=== PATIENT | female | born 1955 | race Caucasian/White ===

== ENCOUNTER → 2018-12-21 18:24 | Outpatient (CLI) | payer MEDICAID, SELFPAY | PROVIDERS: Visit Provider Podiatrist | DX: B35.1 Tinea unguium (principal) | CPT/HCPCS: 87102; 87206; 87220 ==

== ENCOUNTER → 2021-01-20 12:56 | Outpatient (CLI) | payer MEDICAID, SELFPAY ==
[2021-01-20 13:11] LABS: Basophils # 0.1 K/mm3 (0-0.2); Basophils % 0.9 % (0.1-2.0); Eosinophils # 0.1 K/mm3 (0.0-0.4); Eosinophils % 1.4 % (0.1-12.0); Hematocrit 44.3 % (37.0-47.0); Hemoglobin 14.2 g/dL (12.2-16.2); Lymphocytes # 2.3 K/mm3 (0.7-4.5); Lymphocytes % 35.4 % (10-50); Mean Corpuscular HGB Conc 32.1 g/dL (31.8-35.4); Mean Corpuscular Hemoglobin 30.1 pg (27.0-31.2); Mean Corpuscular Volume 93.7 fl (81-99); Mean Platelet Volume 7.7 fl (7.4-10.4); Monocytes # 0.4 K/mm3 (0.1-1.0); Monocytes % 6.6 % (1.7-9.3); Neutrophils # 3.6 K/mm3 (1.8-7.8); Neutrophils % 55.6 % (37.0-80.0); Platelet Count 233 K/mm3 (142-424); Red Blood Count 4.73 M/mm3 (4.20-5.40); Red Cell Distribution Width 14.4 % (11.5-17.5); White Blood Count 6.6 K/mm3 (4.8-10.8)
[2021-01-20 16:48] LABS: Anion Gap 8.9 mEq/L (5-15); Blood Urea Nitrogen 13 mg/dl (7-17); Calcium 9.2 mg/dl (8.4-10.2); Carbon Dioxide 30 mmol/L (22.0-30.0); Chloride 104 mmol/L (98-107); Estimated Glomerular Filt Rate 45 ml/min (>60); GFR (African American) 55 ML/MIN (>60); Glucose 105 mg/dl (74-100); Potassium 3.9 mmoL/L (3.5-5.1); Sodium 139 mmol/L (136-145)
== END ==
PROVIDERS: Visit Provider Surgery
DX: K57.92 Diverticulitis of intestine, part unspecified, without perforation or abscess without bleeding (principal)
CPT/HCPCS: 36415; 80048; 85025

== ENCOUNTER 2021-01-27 17:24 | Emergency (ER) | payer MEDICAID, SELFPAY ==
--- NOTE | 2021-01-27 17:27 | HMH.EDGENADL ---
ED Disposition Clinical Impression: Benign paroxysmal positional vertigo Qualifiers: Laterality: bilateral Qualified Code(s): H81.13 - Benign paroxysmal vertigo, bilateral Disposition: Home, Self-Care Condition on Discharge: Good Instructions: Vertigo Referrals: Johanna Sam APRN [Primary Care Provider] - 3 days Time of Disposition: 19:33 - Critical Care Critical Care Time: No Attestation: On , the high probability of a clinically significant, sudden or life threatening deterioration of the following system(s) required my full and direct attention, intervention and personal management. The time I documented below is in addition to time spent performing reported procedures but includes the following listed in this critical care notation. Medical Decision Making - Medical Records Medical records reviewed: Yes: I reviewed the patient's medical records. - Clay Inquiry Pt receiving controlled substance: No Vital Signs: 01/27/21 17:35 Temperature 98.6 F Temperature Source Oral Pulse Rate [Right Radial] 104 H Respiratory Rate 18 Blood Pressure [Right Arm] 179/102 H Blood Pressure Mean [Right Arm] 127 Blood Pressure Source [Right Arm] Automatic Cuff Blood Pressure Position [Right Arm] Sitting 02 Sat by Pulse Oximetry 98 Oxygen Delivery Method Room Air - Lab Data Lab results reviewed: Yes: I reviewed the patient's lab results. Lab Results 01/27/21 17:54: WBC 11.4 H, RBC 4.92, Hgb 14.8, Hct 45.2, MCV 91.8, MCH 30.1, MCHC 32.7, RDW 14.7, Plt Count 262, MPV 7.7, Neut % (Auto) 68.0, Lymph % (Auto) 23.3, [place] % (Auto) 6.8, Eos % (Auto) 1.3, Baso % (Auto) 0.7, Neut # (Auto) 7.7, Lymph # (Auto) 2.7, [place] # (Auto) 0.8, Eos # (Auto) 0.1, Baso # (Auto) 0.1 01/27/21 17:54: Sodium 140, Potassium 3.4 L, Chloride 102, Carbon Dioxide 31 H, Anion Gap 10.4, BUN 18 H, Creatinine 1.10 H, Estimated Creat Clear 90, Estimated GFR 50 L, Est GFR ( Amer) 61, Glucose 102 H, Calcium 9.5, Troponin I < 0.01 Result diagrams: 01/27/21 17:54 01/27/21 17:54 Orders (Tests/Meds): ED MEDICATIONS Discontinued Medications Generic Name Dose Route Start Last Admin Trade Name Richi PRAlfredo Reason Stop Dose Admin Meclizine HCl 50 mg 01/27/21 18:43 01/27/21 18:52 Meclizine 25mg Tablet PO 01/27/21 18:44 50 mg ONCE ONE Administration - ECG Data Tracing #1 9 7 beats current, normal sinus rhythm, right bundle branch block, no ST elevation or depression. ECG initial impression date: 01/27/21 ECG initial impression time: 17:40 Medical Decision Narrative: 65yo F evaluated for dizziness over a month. Patient in no acute distress on initial evaluation. Patient's exam is benign. Patient's EKG is reviewed as above. Patient has a white count of 11.5. Differential diagnosis includes was not limited to: BPPV, labyrinthitis, acoustic neuroma or schwannoma. Patient is treated with meclizine while waiting for labs to result. Patient is appropriate and stable this time. Symptoms seem to be improved with movement. Lab work is unremarkable. General Adult HPI - General Stated complaint: Dizzy for a month refer by primary DR Time Seen by Provider: 01/27/21 17:27 Mode of Arrival: Ambulatory - History of Present Illness HPI narrative: 65yo F with past medical history of severe mitral valve disease status post mechanical valve is directed to the emergency department by her PCP for 1 month of dizziness. Patient reports her dizziness is not constant and is related to her position. She denies any headache, visual change. She denies nausea/vomiting. She denies any fall. She reports taking all medications as directed. Patient reports she has been diagnosed with a UTI recently and is currently taking antibiotics for it. Patient reports being told by her PCP that she had fluid behind her ears. - Related Data Home Medications Medication Instructions Recorded Confirmed carvedilol 25 mg tablet 25 mg PO BID 30 Days #
--- NOTE | 2021-01-27 17:30 | ECG_ITS ---
APPROVED REPORT Exam: Resting ECG HR:97 bpm ECG Measurements Heart Rate 97 AXES IL 190 P 48 QRSd 132 QRS 114 QT 402 T 24 QTc 510 Conclusion Normal sinus rhythm Right bundle branch block Abnormal ECG Electronically signed by : Ambrose Traylor, 01/29/2021 13:57:20
[2021-01-27 17:35] VITALS: BP 179/102; PULSE 104; RESP 18; TEMP 37; O2SAT 98; BMI 39.9
[2021-01-27 18:13] LABS: Basophils # 0.1 K/mm3 (0-0.2); Basophils % 0.7 % (0.1-2.0); Eosinophils # 0.1 K/mm3 (0.0-0.4); Eosinophils % 1.3 % (0.1-12.0); Hematocrit 45.2 % (37.0-47.0); Hemoglobin 14.8 g/dL (12.2-16.2); Lymphocytes # 2.7 K/mm3 (0.7-4.5); Lymphocytes % 23.3 % (10-50); Mean Corpuscular HGB Conc 32.7 g/dL (31.8-35.4); Mean Corpuscular Hemoglobin 30.1 pg (27.0-31.2); Mean Corpuscular Volume 91.8 fl (81-99); Mean Platelet Volume 7.7 fl (7.4-10.4); Monocytes # 0.8 K/mm3 (0.1-1.0); Monocytes % 6.8 % (1.7-9.3); Neutrophils # 7.7 K/mm3 (1.8-7.8); Platelet Count 262 K/mm3 (142-424); Red Blood Count 4.92 M/mm3 (4.20-5.40); Red Cell Distribution Width 14.7 % (11.5-17.5); White Blood Count 11.4 K/mm3 (4.8-10.8)
[2021-01-27 18:23] LABS: Chloride 102 mmol/L (98-107); Sodium 140 mmol/L (136-145)
[2021-01-27 18:24] LABS: Potassium 3.4 mmoL/L (3.5-5.1)
[2021-01-27 18:26] LABS: Blood Urea Nitrogen 18 mg/dl (7-17); Creatinine Clearance Estimated 90 mL/min (50-200); Estimated Glomerular Filt Rate 50 ml/min (>60); GFR (African American) 61 ML/MIN (>60)
[2021-01-27 18:27] LABS: Anion Gap 10.4 mEq/L (5-15); Calcium 9.5 mg/dl (8.4-10.2); Carbon Dioxide 31 mmol/L (22.0-30.0); Glucose 102 mg/dl (74-100)
[2021-01-27 18:48] LABS: Troponin I < 0.01 ng/ml (0.00-0.034)
[2021-01-27 19:36] VITALS: BP 112/74; PULSE 73; RESP 18; TEMP 36.7; O2SAT 98
== END 2021-01-27 19:37 | disposition home or self-care (01) ==
PROVIDERS: Emergency Provider Family Medicine; PCP Nurse Practitioner Family
DX: H81.13 Benign paroxysmal vertigo, bilateral (principal); Z95.2 Presence of prosthetic heart valve; F41.8 Other specified anxiety disorders; N39.0 Urinary tract infection, site not specified; K21.9 Gastro-esophageal reflux disease without esophagitis; I10 Essential (primary) hypertension; E78.5 Hyperlipidemia, unspecified; Z79.899 Other long term (current) drug therapy
CPT/HCPCS: 80048; 84484; 85025; 93005; 99282

== ENCOUNTER → 2021-07-03 09:39 | Outpatient (CLI) | payer MEDICAID, SELFPAY ==
[2021-07-03 10:28] LABS: Prothrombin Time 29.6 seconds (10.1-12.5)
[2021-07-03 10:49] LABS: Blood Urea Nitrogen 14 mg/dl (7-17); Estimated Glomerular Filt Rate 85 ml/min (>60); GFR (African American) 102 ML/MIN (>60)
== END ==
PROVIDERS: Nurse Practitioner Family; Surgery; Visit Provider Orthopaedic Surgery
DX: Z51.81 Encounter for therapeutic drug level monitoring (principal); Z79.01 Long term (current) use of anticoagulants; Z95.2 Presence of prosthetic heart valve
CPT/HCPCS: 36415; 82565; 84520; 85610

== ENCOUNTER → 2021-07-07 08:36 | Outpatient (CLI) | payer MEDICAID, SELFPAY ==
--- NOTE | 2021-07-07 08:42 | CT_ITS ---
PROCEDURE: CT ABDOMEN PELVIS W CON CLINICAL INDICATION: divertulitis COMPARISON: No exams were available for comparison TECHNIQUE: IV Contrast: 75ML Isovue 370 Oral Contrast 450ml Redicat Axial images obtained with sagittal and coronal reformats. All CT scans at the facility use one or more dose reduction, viz: automated exposure control, ma/kV adjustment per patient size (including targeted exams where dose is matched to indication, i.e. head), or iterative reconstruction technique. FINDINGS: LOWER THORAX: There is a 6 mm noncalcified nodule in the left lower lobe. There has been a prior mitral valve replacement. Epicardial pacer wires are present. ABDOMEN & PELVIS: Mild fatty liver. The spleen, pancreas, and right adrenal gland have an unremarkable appearance. Mildly enlarged left adrenal gland nonspecific maintaining an adrenal form shape. Duodenal diverticulum is noted. There has been a prior cholecystectomy. There is scarring of the right kidney. No renal or ureteral calculi. No hydronephrosis. No intestinal obstruction or free air. No evidence of appendicitis. There is colonic diverticulosis. No evidence of diverticulitis. Small umbilical hernia containing fat. There is a small lower ventral abdominal wall hernia just above the symphysis pubis region containing fat. There has been a prior hysterectomy. No pelvic mass or abnormal fluid collection. Degenerative disc disease L5-S1. IMPRESSION: No acute finding. Colonic diverticulosis without evidence of diverticulitis. Indeterminate 6 mm nodule left lower lobe. Six-month CT chest without contrast suggested for follow-up. Dictated by: Jim Motley MD 07/08/2021 08:58 Jim Motley MD in [place] 07/08/2021 08:58
== END ==
PROVIDERS: PCP Nurse Practitioner Family; Visit Provider Surgery
DX: K57.92 Diverticulitis of intestine, part unspecified, without perforation or abscess without bleeding (principal)
CPT/HCPCS: 74177; Q9967

== ENCOUNTER → 2022-02-19 13:46 | Outpatient (CLI) | payer MEDICAID, SELFPAY ==
[2022-02-19 14:31] LABS: INR 2.66 (0.9-1.1)
== END ==
PROVIDERS: Visit Provider Nurse Practitioner Family
DX: Z51.81 Encounter for therapeutic drug level monitoring (principal); Z79.01 Long term (current) use of anticoagulants; Z95.2 Presence of prosthetic heart valve
CPT/HCPCS: 36415; 85610

== ENCOUNTER → 2022-02-22 10:29 | Outpatient (CLI) | payer MEDICAID, SELFPAY ==
[2022-02-22 10:35] LABS: MANUAL DIFFERENTIAL MANUAL DIFFERENTIAL (MANUAL DIFF)
[2022-02-22 11:13] LABS: INR 3.39 (0.9-1.1)
[2022-02-22 11:23] LABS: Basophils # 0.2 K/mm3 (0-0.2); Basophils % 1.8 % (0.1-2.0); Eosinophils # 0.1 K/mm3 (0.0-0.4); Hematocrit 45.1 % (37.0-47.0); Hemoglobin 14.5 g/dL (12.2-16.2); Lymphocytes # 1.9 K/mm3 (0.7-4.5); Lymphocytes % 23.4 % (10-50); Mean Corpuscular HGB Conc 32.2 g/dL (31.8-35.4); Mean Corpuscular Hemoglobin 31.3 pg (27.0-31.2); Mean Corpuscular Volume 97.2 fl (81-99); Monocytes # 0.6 K/mm3 (0.1-1.0); Neutrophils # 5.4 K/mm3 (1.8-7.8); Neutrophils % 66.8 % (37.0-80.0); Platelet Count 277 K/mm3 (142-424); Red Blood Count 4.64 M/mm3 (4.20-5.40); Red Cell Distribution Width 14.7 % (11.5-17.5)
[2022-02-22 17:13] LABS: Hypochromasia 1+; Lymphocytes % 12 % (10-50); Monocytes % 4 % (2-9); Neutrophils % 84 % (42-76); Platelet Estimate Normal; Total Cells Counted 100
== END ==
PROVIDERS: PCP Surgery; Visit Provider Nurse Practitioner Family
DX: Z01.812 Encounter for preprocedural laboratory examination (principal); Z11.52 Encounter for screening for COVID-19; Z12.11 Encounter for screening for malignant neoplasm of colon; Z95.2 Presence of prosthetic heart valve
CPT/HCPCS: 36415; 85007; 85014; 85018; 85048; 85049; 85610; C9803; U0003; U0005

== ENCOUNTER 2022-02-23 07:03 | Day surgery (SDC) | payer MEDICAID, SELFPAY ==
[2022-02-22 09:19] VITALS: BMI 39.7
[2022-02-23 07:43] VITALS: BP 179/101; PULSE 91; RESP 18; TEMP 37.2; O2SAT 98
--- NOTE | 2022-02-23 08:08 | P.PN_ITS ---
[facility] Anesthesia Checklist - Patient Identification Patient Identification: Arm Band, Verbal (Name & ) - Structural Data Planned Operative Procedure/s: EGD/Colonoscopy Consent for Planned Operative Procedure(s) Verified: Yes Verified Documents: Surgical Consent - NPO Status Verified Time NPO: 04:30 - Airway Assessment C-Spine Mobility Assessed: Yes TMJ Mobility Assessed: Yes Dentition: Good Dentition - Neurological Assessment Level of Consciousness: Awake, Alert, Appropriate - Anesthesia Plan Anesthesia Risk discussed: Yes ASA Class: III Anesthesia Type: MAC [facility] History I have reviewed the patient's past medical history: Yes Medical History: Reports:: Anxiety, Depression, Gastroesophageal Reflux Disea se(GERD), Heart Murmur, Hyperlipidemia, Hypertension, Valvular Heart Disease Denies:: Cancer, Diabetes Mellitus Type 1, Diabetes Mellitus Type 2, Internal Pacemaker, MRSA, Seizures *Have you ever received a pneumonia vaccine?: No *Have you received a flu vaccine this season?: No Other Medical History: Reports: Arthritis, Sinus Problems Anesthesia experience/problems:: none Other Surgeries: Yes: Cardiac Catheterization, Cholecystectomy, Hysterectomy- Total. No: Pacemaker Amputation: No Fractures: No - *Social History Last grade of school completed: 9th or 10th Smoking Status: Never smoker Alcohol Intake: current Alcohol Intake Frequency:: a few times a month Substance Use Type: denies use *Occupational Status:: employed Housing: house Household Members: none *Travel in the last 8 weeks: None - Psychiatric History Pschychiatric History:: Reports:: Anxiety, Depression Family Hx:: Diabetes, Cancer, Stroke, Heart Attack, Hyperlipidemia, Hypertension
[2022-02-23 08:15] VITALS: O2SAT 98
--- NOTE | 2022-02-23 09:06 | HMH.SCOPE ---
- Procedure: Date: 02/23/22 Patient Date of :: 1955 Procedure Performed:: Esophagogastroduodenoscopy with biopsy Colonoscopy with polypectomy Indications:: Gastroesophageal reflux History of diverticulitis Performing Provider:: Stanislaw Silvestre MD Referring Provider:: . Sedation:: Monitored anesthesia care Procedure:: After informed consent was obtained the patient was taken to the endoscopy suite. Sedation ensued after the patient was transferred to the left lateral decubitus position. Pulse, blood pressure, and oxygen saturation were monitored throughout the procedure. The endoscope was advanced beyond the duodenal bulb. Retroflexion within the gastric lumen was accomplished. The gastroscope was carefully removed. Digital rectal exam revealed no significant abnormality. The colonoscope was placed in position. The entire colon was evaluated. The colonoscope was carefully removed and the patient was transferred to recovery in stable condition. Please see findings and specimens below for detail. Findings:: Gastroesophageal junction at 36 cm Patchy gastritis Fundic gland polyp and mid gastric body Bowel preparation fair to moderate Fairly severe sigmoid tortuosity Significant spasticity Scattered diverticulosis (mostly sigmoid) Multiple polyps (see specimens) Specimens:: Antral biopsy Fundic gland polyp (hot snare) Polyp at appendiceal orifice (cold biopsy forceps) Cecal polyp (cold biopsy forceps) Distal transverse colon polyp (cold biopsy forceps) Polyp at 45 cm (cold biopsy forceps) Recommendations:: Continue proton pump inhibition Follow-up pathology Timing of repeat colonoscopy is pending pathology but will likely be around 2 years secondary to number of polyps, spasticity, and tortuosity. Complications:: No immediate Estimated blood obtained (mL): 1
[2022-02-23 09:10] VITALS: BP 127/63; PULSE 84; RESP 16; TEMP 37.2; O2SAT 99
[2022-02-23 09:20] VITALS: BP 139/65; PULSE 78; RESP 16; O2SAT 98
[2022-02-23 09:30] VITALS: BP 142/86; PULSE 78; RESP 16; O2SAT 98
[2022-02-23 09:40] VITALS: BP 158/96; PULSE 72; RESP 18; O2SAT 97
== END 2022-02-23 09:42 | disposition home or self-care (01) ==
LOC: OUTP 07:04
PROVIDERS: PCP Nurse Practitioner Family; Visit Provider Surgery
PROC: 0DJ08ZZ Inspection of Upper Intestinal Tract, Via Natural or Artificial Opening Endoscopic (ICD-10-PCS; CPT 43235; principal; 2022-02-23 08:30)
DX: Z12.11 Encounter for screening for malignant neoplasm of colon (principal); K29.60 Other gastritis without bleeding; K31.7 Polyp of stomach and duodenum; K56.2 Volvulus; K58.9 Irritable bowel syndrome, unspecified; K57.30 Diverticulosis of large intestine without perforation or abscess without bleeding; K63.5 Polyp of colon; Z87.19 Personal history of other diseases of the digestive system
CPT/HCPCS: 43239; 45380

== ENCOUNTER 2022-02-25 07:50 | Emergency (ER) | payer MEDICAID, SELFPAY ==
[2022-02-25] VITALS (7 sets, daily range): BP systolic 129–150; BP diastolic 68–98; PULSE 78–85; RESP 18–20; TEMP 37.2–37.3; O2SAT 94–96; BMI 39.7
--- NOTE | 2022-02-25 07:55 | PC.NURSE ---
PAWEL Garzon at BS
--- NOTE | 2022-02-25 08:22 | PC.NURSE ---
ED MD at
--- NOTE | 2022-02-25 08:24 | CT_ITS ---
FINAL REPORT CLINICAL HISTORY: abdominal pain, bloody bowel movement COMPARISON: July 07, 2021 FINDINGS: Axial CT images of the abdomen and pelvis were obtained without intravenous contrast. Coronal reformatted images were also obtained.This study was performed with techniques to keep radiation doses as low as reasonably achievable (ALARA). Individualized dose reduction techniques using automated exposure control or adjustment of mA and/or kV according to the patient's size were employed. Abdomen: The lung bases are clear. There is no evidence of renal stone or hydronephrosis. There is evidence of cholecystectomy. The liver, spleen and pancreas have an unremarkable, unenhanced appearance. There is mild left adrenal gland enlargement likely representing hyperplasia or an adenoma. There is stable right renal scarring. No inflammatory process is identified. Pelvis: Images of the pelvis reveal no evidence of ureteral dilation or ureteral stone. There are several sigmoid diverticula. There has been hysterectomy. There is a right anterior pelvis subcutaneous hematoma measuring 6.0 x 3.0 cm in maximum axial dimensions with surrounding stranding. IMPRESSION: Diverticulosis without evidence of diverticulitis. Anterior pelvis subcutaneous hematoma with surrounding stranding. Reviewed, Interpreted and Dictated by Chase Venegas III, MD Transcribed by Manish Chirinos Authenticated by Chase Venegas III, MD on 02/25/2022 09:40:16 AM [facility]
[2022-02-25 08:28] LABS: Basophils # 0.3 K/mm3 (0-0.2); Basophils % 4.3 % (0.1-2.0); Eosinophils % 0.4 % (0.1-12.0); Hematocrit 44.2 % (37.0-47.0); Hemoglobin 14.5 g/dL (12.2-16.2); Lymphocytes # 1.4 K/mm3 (0.7-4.5); Lymphocytes % 22.6 % (10-50); Mean Corpuscular HGB Conc 32.7 g/dL (31.8-35.4); Mean Corpuscular Volume 97.8 fl (81-99); Mean Platelet Volume 8.5 fl (7.4-10.4); Monocytes # 0.6 K/mm3 (0.1-1.0); Monocytes % 10.1 % (1.7-9.3); Neutrophils # 4.2 K/mm3 (1.8-7.8); Neutrophils % 66.9 % (37.0-80.0); Platelet Count 236 K/mm3 (142-424); Red Blood Count 4.52 M/mm3 (4.20-5.40); Red Cell Distribution Width 14.9 % (11.5-17.5); White Blood Count 6.3 K/mm3 (4.8-10.8)
--- NOTE | 2022-02-25 08:29 | PC.NURSE ---
rad notified of ct
--- NOTE | 2022-02-25 08:30 | HMH.EDGENADL ---
ED Disposition Clinical Impression: Melena Disposition: Home, Self-Care Condition on Discharge: Good Instructions: DI for Gastrointestinal Bleeding Referrals: Johanna Sam APRN [Primary Care Provider] - - Critical Care Critical Care Time: No Attestation: On 02/25/22, the high probability of a clinically significant, sudden or life threatening deterioration of the following system(s) required my full and direct attention, intervention and personal management. The time I documented below is in addition to time spent performing reported procedures but includes the following listed in this critical care notation. Medical Decision Making - Medical Records Medical records reviewed: Yes: I reviewed the patient's medical records. - Clay Inquiry Pt receiving controlled substance: No Vital Signs: 02/25/22 07:51 02/25/22 07:55 02/25/22 08:00 Temperature 99.2 F Temperature Source Oral Pulse Rate 85 84 Pulse Rate [Right Radial] 84 Respiratory Rate 18 Blood Pressure 138/73 141/82 H Blood Pressure [Right Arm] 138/73 Blood Pressure Mean [Right Arm] 94 Blood Pressure Source Automatic Cuff Automatic Cuff Blood Pressure Source [Right Arm] Automatic Cuff Blood Pressure Position Sitting Sitting Blood Pressure Position [Right Arm] Sitting 02 Sat by Pulse Oximetry 96 95 96 Oxygen Delivery Method Room Air Room Air Room Air 02/25/22 08:54 02/25/22 09:30 Temperature Temperature Source Pulse Rate 79 81 Pulse Rate [Right Radial] Respiratory Rate Blood Pressure 150/98 H 133/80 Blood Pressure [Right Arm] Blood Pressure Mean [Right Arm] Blood Pressure Source Automatic Cuff Automatic Cuff Blood Pressure Source [Right Arm] Blood Pressure Position Sitting Sitting Blood Pressure Position [Right Arm] 02 Sat by Pulse Oximetry 94 L 94 L Oxygen Delivery Method Room Air Room Air - Lab Data Lab Results 02/25/22 08:05: WBC 6.3, RBC 4.52, Hgb 14.5, Hct 44.2, MCV 97.8, MCH 32.0 H, MCHC 32.7, RDW 14.9, Plt Count 236, MPV 8.5, Neut % (Auto) 66.9, Lymph % (Auto) 22.6, [place] % (Auto) 10.1 H, Eos % (Auto) 0.4, Baso % (Auto) 4.3 H, Neut # (Auto) 4.2, Lymph # (Auto) 1.4, [place] # (Auto) 0.6, Eos # (Auto) 0.0, Baso # (Auto) 0.3 H 02/25/22 08:05: PT 13.7 H, INR 1.23 H 02/25/22 08:05: Sodium 136, Potassium 3.4 L, Chloride 103, Carbon Dioxide 26, Anion Gap 10.4, BUN 20 H, Creatinine 1.00, Estimated Creat Clear 97, Estimated GFR 56 L, Est GFR ( Amer) 68, Glucose 129 H, Calcium 8.8, Total Bilirubin 0.9, AST 73 H, ALT 53, Alkaline Phosphatase 73, Total Protein 6.8, Albumin 3.9, Globulin 2.9, Albumin/Globulin Ratio 1.3 Result diagrams: 02/25/22 08:05 02/25/22 08:05 Orders (Tests/Meds): ED MEDICATIONS Generic Name Dose Route Start Last Admin Trade Name Freq PRN Reason Stop Dose Admin Sodium Chloride 10 ml 02/25/22 08:08 Sodium Chloride 0.9% 10ml Flush Syringe IV 03/27/22 08:07 NEEDED PRN Maintain IV Site - CT Data CT Scan: Abdomen, Pelvis Time Received: 09:[address] Reviewed: Yes: I have reviewed the patient's CT results, I have viewed the radiologist's interpretation Findings Narrative: IMPRESSION: Diverticulosis without evidence of diverticulitis. Anterior pelvis subcutaneous hematoma with surrounding stranding. - Reevaluation(s) Time: 10:09 Reevaluation #1: On reevaluation, the patient is feeling better. No further bleeding. Hemoglobin stable. No evidence of acute abdomen. Patient will follow up with general surgery as previously prescribed. Given strict return precautions. Verbalized understanding. Medical Decision Narrative: 66-year-old female presented to the emergency department with some bleeding per rectum. Patient had a recent colonoscopy and is currently on anticoagulation. She is not having any mention of bleeding. Hemodynamically stable. Likely bleeding from polyp removal. Work-up initiated. General Adult HPI - General Chief comp
[2022-02-25 08:32] LABS: Alanine Aminotransferase 53 U/L (12-78); Albumin Level 3.9 g/dl (3.5-5.0); Albumin/Globulin Ratio 1.3 (1.1-1.8); Alkaline Phosphatase 73 U/L (38-126); Anion Gap 10.4 mEq/L (5-15); Aspartate Amino Transferase 73 U/L (14-36); Bilirubin,Total 0.9 mg/dl (0.2-1.3); Blood Urea Nitrogen 20 mg/dl (7-17); Calcium 8.8 mg/dl (8.4-10.2); Carbon Dioxide 26 mmol/L (22.0-30.0); Chloride 103 mmol/L (98-107); Creatinine Clearance Estimated 97 mL/min (50-200); Estimated Glomerular Filt Rate 56 ml/min (>60); GFR (African American) 68 ML/MIN (>60); Globulin 2.9 g/dL (1.3-3.2); Glucose 129 mg/dl (74-100); Potassium 3.4 mmoL/L (3.5-5.1); Sodium 136 mmol/L (136-145); Total Protein,Serum 6.8 g/dl (6.3-8.2)
[2022-02-25 08:34] LABS: INR 1.23 (0.9-1.1); Prothrombin Time 13.7 seconds (10.1-12.5)
--- NOTE | 2022-02-25 08:35 | PC.NURSE ---
patient to CT with data communications technician by wheelchair
--- NOTE | 2022-02-25 08:44 | PC.NURSE ---
patient back from CT with water and fire technician by wheelchair
--- NOTE | 2022-02-25 09:39 | PC.NURSE ---
checked on pt at this time, pt given a pillow for comfort per her request. Updated pt we are waiting on CT scan results. will continue to monitor
--- NOTE | 2022-02-25 10:06 | PC.NURSE ---
ED MD at speaking with patient for update on POC
== END 2022-02-25 10:34 | disposition home or self-care (01) ==
PROVIDERS: Emergency Provider Emergency Medicine; PCP Nurse Practitioner Family
DX: K92.1 Melena (principal); Z98.890 Other specified postprocedural states; Z86.010 Personal history of colon polyps; Z79.01 Long term (current) use of anticoagulants; F41.9 Anxiety disorder, unspecified; F32.A Depression, unspecified; K21.9 Gastro-esophageal reflux disease without esophagitis; E78.5 Hyperlipidemia, unspecified; I10 Essential (primary) hypertension; M19.90 Unspecified osteoarthritis, unspecified site; Z91.040 Latex allergy status; Z79.82 Long term (current) use of aspirin
CPT/HCPCS: 74176; 80053; 85025; 85610; 99284

== ENCOUNTER → 2022-03-01 09:32 | Outpatient (CLI) | payer MEDICAID, SELFPAY ==
[2022-03-01 09:53] LABS: Basophils # 0.1 K/mm3 (0-0.2); Basophils % 2.1 % (0.1-2.0); Eosinophils % 0.8 % (0.1-12.0); Hematocrit 37.7 % (37.0-47.0); Hemoglobin 12.6 g/dL (12.2-16.2); Lymphocytes # 1.7 K/mm3 (0.7-4.5); Lymphocytes % 39.2 % (10-50); Mean Corpuscular HGB Conc 33.5 g/dL (31.8-35.4); Mean Corpuscular Volume 98.4 fl (81-99); Mean Platelet Volume 8.1 fl (7.4-10.4); Monocytes # 0.3 K/mm3 (0.1-1.0); Monocytes % 6.2 % (1.7-9.3); Neutrophils # 2.3 K/mm3 (1.8-7.8); Neutrophils % 51.8 % (37.0-80.0); Platelet Count 196 K/mm3 (142-424); Red Blood Count 3.83 M/mm3 (4.20-5.40); Red Cell Distribution Width 14.7 % (11.5-17.5); White Blood Count 4.5 K/mm3 (4.8-10.8)
[2022-03-01 10:02] LABS: INR 2.11 (0.9-1.1); Prothrombin Time 22.6 seconds (10.1-12.5)
== END ==
PROVIDERS: Visit Provider Nurse Practitioner Family
DX: Z51.81 Encounter for therapeutic drug level monitoring (principal); Z79.01 Long term (current) use of anticoagulants; Z95.2 Presence of prosthetic heart valve
CPT/HCPCS: 36415; 85025; 85610

== ENCOUNTER 2022-03-06 13:10 | Emergency (ER) | payer MEDICAID, SELFPAY ==
[2022-03-06 13:11] VITALS: BP 163/80; PULSE 88; RESP 16; TEMP 36.6; O2SAT 98; BMI 39.6
[2022-03-06 13:30] VITALS: BP 139/72; PULSE 88; RESP 16; O2SAT 98
--- NOTE | 2022-03-06 13:36 | HMH.EDGENADL ---
ED Disposition Clinical Impression: Otalgia of right ear Pharyngitis Qualifiers: Pharyngitis/tonsillitis etiology: unspecified etiology Qualified Code(s): J02.9 - Acute pharyngitis, unspecified Disposition: Home, Self-Care Condition on Discharge: Good Instructions: Middle Ear Infection, DI for Pharyngitis/Tonsillopharyngitis -- Adult Additional Instructions: follow up PCP as needed Prescriptions: Azithromycin [Zithromax 250mg tab] 250 mg PO DIRECTED #6 tab Transmission Status: Received by [facility] Azithromycin [Zithromax 250mg tab] 250 mg PO DIRECTED #6 tab Transmission Status: Received by [id number] Referrals: Johanna Sam APRN [Primary Care Provider] - - Critical Care Critical Care Time: No Attestation: On 03/06/22, the high probability of a clinically significant, sudden or life threatening deterioration of the following system(s) required my full and direct attention, intervention and personal management. The time I documented below is in addition to time spent performing reported procedures but includes the following listed in this critical care notation. Medical Decision Making - Medical Records Medical records reviewed: Yes: I reviewed the patient's medical records. - Clay Inquiry Pt receiving controlled substance: No Vital Signs: 03/06/22 13:11 03/06/22 13:30 03/06/22 13:52 Temperature 98 F 98 F Temperature Source Oral Oral Pulse Rate 88 78 Pulse Rate [Radial] 88 Respiratory Rate 16 16 16 Blood Pressure 139/72 132/68 Blood Pressure [Right Arm] 163/80 H Blood Pressure Mean 108 Blood Pressure Mean [Right Arm] 107 Blood Pressure Position Sitting Blood Pressure Position [Right Arm] Sitting 02 Sat by Pulse Oximetry 98 98 Oxygen Delivery Method Room Air Room Air General Adult HPI - General Stated complaint: sore throat, knot in neck, ear pain Time Seen by Provider: 03/06/22 13:36 - History of Present Illness HPI narrative: sore throat, cough dry, rt otalgia, few days Onset (ago): day(s) Radiation: non-radiation Severity: mild Consistency: constant, intermittent Relieving factors: none Exacerbating factors: eating Associated symptoms: denies other symptoms - Related Data Home Medications Medication Instructions Recorded Confirmed carvedilol 25 mg tablet 25 mg PO BID 30 Days #45 tab 03/07/19 05/18/22 hydrochlorothiazide 25 mg tablet 25 mg PO DAILY 30 Days #30 tab 12/21/18 03/03/22 omeprazole 40 mg capsule,delayed 40 mg PO DAILY 30 Days #30 cap 12/21/18 03/03/22 release rosuvastatin 40 mg tablet 40 mg PO HS 30 Days #30 tab 12/21/18 03/03/22 aspirin 81 mg tablet,delayed 81 mg PO DAILY 01/14/21 03/03/22 release montelukast 10 mg tablet 10 mg PO DAILY tab 01/14/21 03/03/22 warfarin 4 mg tablet 4 mg PO QMWF 01/14/21 03/03/22 Enoxaparin Sodium [Lovenox 40 mg SQ BID 02/22/22 03/03/22 40mg/0.4mL syringe] Previous Rx's Medication Instructions Recorded Azithromycin [Zithromax 250mg 250 mg PO DIRECTED #6 tab 03/06/22 tab] Azithromycin [Zithromax 250mg 250 mg PO DIRECTED #6 tab 03/06/22 tab] Allergies Allergy/AdvReac Type Severity Reaction Status Date / Time Latex, Natural Rubber AdvReac Unknown Verified 03/03/22 09:27 [facility] History - Hepatitis A Screen Attestation statement:: This patient has been screened for Hepatitis A risk factors. Medical History: Reports:: Anxiety, Depression, Gastroesophageal Reflux Disease(GERD), Heart Murmur, Hyperlipidemia, Hypertension, Valvular Heart Disease Denies:: Cancer, Diabetes Mellitus Type 1, Diabetes Mellitus Type 2, Internal Pacemaker, MRSA, Seizures Other Medical History: Reports: Arthritis, Sinus Problems Comment: Leaky valves in heart Other Surgeries: Yes: Cardiac Catheterization, Cholecystectomy, Hysterectomy-Total. No: Pacemaker Amputation: No Fractures: No - Social History Smoking Status: Never smoker Alcohol Intake: cur
[2022-03-06 13:52] VITALS: BP 132/68; PULSE 78; RESP 16; TEMP 36.6; O2SAT 98
== END 2022-03-06 13:54 | disposition home or self-care (01) ==
PROVIDERS: Emergency Provider Emergency Medicine; PCP Nurse Practitioner Family
DX: J02.9 Acute pharyngitis, unspecified (principal); H92.01 Otalgia, right ear; M54.2 Cervicalgia; I25.10 Atherosclerotic heart disease of native coronary artery without angina pectoris; R01.1 Cardiac murmur, unspecified; K21.9 Gastro-esophageal reflux disease without esophagitis; E78.5 Hyperlipidemia, unspecified; M19.90 Unspecified osteoarthritis, unspecified site; F32.A Depression, unspecified; F41.9 Anxiety disorder, unspecified; Z79.01 Long term (current) use of anticoagulants; Z79.82 Long term (current) use of aspirin; Z79.899 Other long term (current) drug therapy; Z91.040 Latex allergy status; Z82.49 Family history of ischemic heart disease and other diseases of the circulatory system; Z83.438 Family history of other disorder of lipoprotein metabolism and other lipidemia; Z80.9 Family history of malignant neoplasm, unspecified; Z83.3 Family history of diabetes mellitus
CPT/HCPCS: 99283

== ENCOUNTER → 2022-05-10 18:19 | Outpatient (CLI) | payer MEDICAID, SELFPAY ==
[2022-05-10 18:50] LABS: Basophils # 0.1 K/mm3 (0-0.2); Basophils % 0.8 % (0.1-2.0); Eosinophils # 0.1 K/mm3 (0.0-0.4); Eosinophils % 1.6 % (0.1-12.0); Hematocrit 42.7 % (37.0-47.0); Lymphocytes # 1.5 K/mm3 (0.7-4.5); Lymphocytes % 24.5 % (10-50); Mean Corpuscular HGB Conc 32.7 g/dL (31.8-35.4); Mean Corpuscular Hemoglobin 32.1 pg (27.0-31.2); Mean Platelet Volume 8.4 fl (7.4-10.4); Monocytes # 0.5 K/mm3 (0.1-1.0); Monocytes % 7.3 % (1.7-9.3); Neutrophils # 4.1 K/mm3 (1.8-7.8); Neutrophils % 65.9 % (37.0-80.0); Platelet Count 254 K/mm3 (142-424); Red Blood Count 4.36 M/mm3 (4.20-5.40); Red Cell Distribution Width 14.9 % (11.5-17.5); White Blood Count 6.3 K/mm3 (4.8-10.8)
[2022-05-10 19:00] LABS: Chol/HDL Ratio 3.7 (1-3.5); Cholesterol 190 mg/dl (140-200); HDL Cholesterol 51 mg/dl (40-60); Triglycerides 109 mg/dl (30-150); VLDL Cholesterol 22 mg/dL (0-40)
[2022-05-10 19:11] LABS: Direct LDL Cholesterol 97.46 mg/dL (100-129)
[2022-05-10 19:49] LABS: Vitamin B12 633 pg/mL (239-931)
== END ==
PROVIDERS: PCP Family Medicine; Visit Provider Family Medicine
DX: Z00.00 Encounter for general adult medical examination without abnormal findings (principal); I10 Essential (primary) hypertension; E53.8 Deficiency of other specified B group vitamins
CPT/HCPCS: 80061; 82607; 85025

== ENCOUNTER → 2022-05-13 09:10 | Outpatient (CLI) | payer MEDICAID, SELFPAY ==
[2022-05-13 13:54] LABS: INR 4.34 (0.9-1.1)
== END ==
PROVIDERS: PCP Family Medicine; Visit Provider Family Medicine
DX: Z51.81 Encounter for therapeutic drug level monitoring (principal); Z79.01 Long term (current) use of anticoagulants; Z95.2 Presence of prosthetic heart valve
CPT/HCPCS: 36415; 85610

== ENCOUNTER → 2022-05-20 07:43 | Outpatient (CLI) | payer MEDICAID, SELFPAY ==
[2022-05-20 14:48] LABS: INR 2.57 (0.9-1.1); Prothrombin Time 27.1 seconds (10.1-12.5)
== END ==
PROVIDERS: PCP Family Medicine; Visit Provider Family Medicine
DX: Z51.81 Encounter for therapeutic drug level monitoring (principal); Z79.01 Long term (current) use of anticoagulants; Z95.2 Presence of prosthetic heart valve
CPT/HCPCS: 36415; 85610

== ENCOUNTER → 2022-06-03 14:23 | Outpatient (CLI) | payer MEDICAID, SELFPAY ==
[2022-06-03 15:01] LABS: INR 3.15 (0.9-1.1); Prothrombin Time 32.7 seconds (10.1-12.5)
== END ==
LOC: ACC 14:25 → LAB 14:28
PROVIDERS: PCP Family Medicine; Visit Provider Family Medicine
DX: Z51.81 Encounter for therapeutic drug level monitoring (principal); Z79.01 Long term (current) use of anticoagulants; Z95.2 Presence of prosthetic heart valve
CPT/HCPCS: 36415; 85610

== ENCOUNTER → 2022-06-17 10:46 | Outpatient (CLI) | payer MEDICAID, SELFPAY ==
[2022-06-17 17:34] LABS: INR 2.02 (0.9-1.1); Prothrombin Time 21.7 seconds (10.1-12.5)
== END ==
PROVIDERS: PCP Family Medicine; Visit Provider Family Medicine
DX: Z51.81 Encounter for therapeutic drug level monitoring (principal); Z79.01 Long term (current) use of anticoagulants; I48.91 Unspecified atrial fibrillation
CPT/HCPCS: 36415; 85610

== ENCOUNTER 2022-06-20 01:49 | Emergency (ER) | payer MEDICAID, SELFPAY ==
[2022-06-20 01:49] VITALS: BP 138/96; PULSE 72; RESP 18; TEMP 36.4; O2SAT 93; BMI 37.1
[2022-06-20 02:03] VITALS: BMI 37.1
--- NOTE | 2022-06-20 02:03 | CT_ITS ---
PROCEDURE INFORMATION: Exam: CT Cervical Spine Without Contrast Exam date and time: 06/20/2022 2:10 AM Age: 66 years old Clinical indication: Injury or trauma; Fall; Patient HX: Fell hit head on coumadin TECHNIQUE: Imaging protocol: Computed tomography of the cervical spine without contrast. Radiation optimization: All CT scans at this facility use at least one of these dose optimization techniques: automated exposure control; mA and/or kV adjustment per patient size (includes targeted exams where dose is matched to clinical indication); or iterative reconstruction. COMPARISON: CT HEAD/BRAIN WO CON 06/20/2022 2:08 AM FINDINGS: Bones/joints: Mild dextroconvex curvature. Vertebral body height and AP alignment is preserved. [id number] degenerative change about the dens. Mild prevertebral osteophytosis. There are bilateral facet joint degenerative changes. No definite significant central canal stenosis within limitations of technique. Scattered cervical foraminal stenoses. Lungs: Lung apices are normal. Pleural spaces: No visible pneumothorax. Vasculature: Vascular calcification. Soft tissues: Unremarkable. IMPRESSION: No acute cervical spine fracture.
--- NOTE | 2022-06-20 02:03 | XR_ITS ---
PROCEDURE INFORMATION: Exam: XR Pelvis Exam date and time: 06/20/2022 2:29 AM Age: 66 years old Clinical indication: Injury or trauma; Fall; Blunt trauma (contusions or hematomas); Bilateral; Pelvic region TECHNIQUE: Imaging protocol: Radiologic exam of the pelvis. Views: 1 or 2 view. COMPARISON: CT ABDOMEN PELVIS WO CON 02/25/2022 8:34 AM FINDINGS: Bones/joints: No acute fracture or malalignment. Pubic symphysis and bilateral sacroiliac joints are congruent. Soft tissues: Unremarkable. IMPRESSION: No evidence of acute osseous abnormality in the pelvis.
--- NOTE | 2022-06-20 02:03 | CT_ITS ---
PROCEDURE INFORMATION: Exam: CT Head Without Contrast Exam date and time: 06/20/2022 2:08 AM Age: 66 years old Clinical indication: Injury or trauma; Fall; Additional info: Fall hit head on coumadin TECHNIQUE: Imaging protocol: Computed tomography of the head without contrast. Radiation optimization: All CT scans at this facility use at least one of these dose optimization techniques: automated exposure control; mA and/or kV adjustment per patient size (includes targeted exams where dose is matched to clinical indication); or iterative reconstruction. COMPARISON: No relevant prior studies available. FINDINGS: Brain: Right cerebral convexity acute subdural hemorrhage measures up to 2 cm. Subdural hemorrhage mildly extends along the right falx. Subdural hemorrhage along the right tentorium measures up to 5 mm. There is extensive mass effect with midline shift to the left measuring 1.6 cm. There is subfalcine herniation. Cerebral ventricles: Partial effacement of the right lateral ventricle. No hydrocephalus. Paranasal sinuses: Visualized sinuses are unremarkable. No fluid levels. Mastoid air cells: Visualized mastoid air cells are well aerated. Bones/joints: Unremarkable. No acute fracture. Soft tissues: Unremarkable. IMPRESSION: 1. 2 cm right cerebral convexity acute subdural hemorrhage extending along the right falx and right tentorium. 2. Extensive mass effect with midline shift to the left measuring 1.6 cm. Subfalcine herniation.
--- NOTE | 2022-06-20 02:03 | XR_ITS ---
PROCEDURE INFORMATION: Exam: XR Chest Exam date and time: 06/20/2022 2:28 AM Age: 66 years old Clinical indication: Injury or trauma; Fall; Blunt trauma (contusions or hematomas) TECHNIQUE: Imaging protocol: Radiologic exam of the chest. Views: 1 view. COMPARISON: CT CERVICAL SPINE WO CON 06/20/2022 2:10 AM FINDINGS: Tubes, catheters and devices: Orphaned epicardial leads incidentally noted. Lungs: Low lung volumes, limiting evaluation of lung bases. No definite acute airspace consolidation. Pleural spaces: No large pleural effusion. No pneumothorax. Heart/Mediastinum: Global cardiomegaly. Prior valvuloplasty. Bones/joints: Prior median sternotomy with intact sternotomy wires. No acute osseous abnormality. IMPRESSION: 1. No acute findings. 2. Global cardiomegaly.
[2022-06-20 02:14] LABS: Basophils % 0.5 % (0.1-2.0); Eosinophils % 0.3 % (0.1-12.0); Hematocrit 42.4 % (37.0-47.0); Hemoglobin 13.4 g/dL (12.2-16.2); Lymphocytes # 1.3 K/mm3 (0.7-4.5); Lymphocytes % 15.1 % (10-50); Mean Corpuscular HGB Conc 31.6 g/dL (31.8-35.4); Mean Corpuscular Hemoglobin 31.3 pg (27.0-31.2); Mean Corpuscular Volume 99.1 fl (81-99); Mean Platelet Volume 7.8 fl (7.4-10.4); Monocytes # 0.5 K/mm3 (0.1-1.0); Monocytes % 5.9 % (1.7-9.3); Neutrophils # 6.5 K/mm3 (1.8-7.8); Neutrophils % 78.2 % (37.0-80.0); Platelet Count 252 K/mm3 (142-424); Red Blood Count 4.28 M/mm3 (4.20-5.40); Red Cell Distribution Width 15.3 % (11.5-17.5); White Blood Count 8.3 K/mm3 (4.8-10.8)
--- NOTE | 2022-06-20 02:19 | HMH.EDFALL ---
Discharge Plan Disposition Patient Disposition: [facility] Chief Complaint: Fall Prescriptions Prescriptions: No Action warfarin 4 mg tablet 2 mg PO QMWF Rx Instructions: (2) 2mg 3 days a week (1) 2 mg 4 days a week aspirin 81 mg tablet,delayed release (DR/EC) 81 mg PO DAILY 90 Days Qty: 90 0RF atorvastatin [Lipitor] 40 mg tablet 40 mg PO DAILY 90 Days Qty: 90 2RF carvedilol 25 mg tablet 25 mg PO BID 90 Days Qty: 180 0RF hydrochlorothiazide 25 mg tablet 25 mg PO DAILY 90 Days Qty: 90 0RF levocetirizine 5 mg tablet 5 mg PO DAILY 90 Days Qty: 90 0RF montelukast 10 mg tablet 10 mg PO DAILY 90 Days Qty: 90 0RF omeprazole 40 mg capsule,delayed release(DR/EC) 40 mg PO DAILY 90 Days Qty: 90 0RF polyethylene glycol 3350 [Miralax] 17 gram/dose powder 17 g PO DAILY 90 Days Qty: 1530 0RF imipramine HCl 25 mg tablet 25 mg PO HS 90 Days Qty: 90 0RF warfarin 2 mg tablet 2 mg PO DAILY 90 Days Qty: 90 2RF Rx Instructions: (2) 2mg 3 days a week (1) 2 mg 4 days a week Referrals Follow up/Referrals: Yves Fuentes MD [Primary Care Provider] - See instructions Clinical Impressions Clinical Impression: Acute subdural hematoma, Anticoagulated on Coumadin Discharge ED Provider: Meliton Hong HPI General Chief Complaint: Fall Stated Complaint: fall Time Seen by Provider: 06/20/22 02:19 Mode of Arrival: EMS Source of Information: EMS and Medical Record Limitations: Altered Mental Status Description of Symptoms (Recalled from ER Triage Doc. by RN): per EMS they was called out for a fall. family reports pt walking up stairs and fell back and loss concious and is on a blood thinner History of Present Illness HPI Narrative: fall with possible head injury - on coumadin and has been drinking complaint: fall Onset (ago): hour(s) Fall from: standing Fall witnessed: yes, by family Place fall occurred: home Loss of consciousness: yes Prolonged down time: no Context: alcohol use and other (on coumadin) Location of injury: head Severity: severe Associated symptoms (after fall): headache Related Data Home Medications Medication Instructions Recorded Confirmed warfarin 4 mg tablet 2 mg PO QMWF Blood thinner 05/10/22 05/10/22 Previous Rx's Medication Instructions Recorded aspirin 81 mg tablet,delayed 81 mg PO DAILY Heart disease 90 06/09/22 release days #90 tabs atorvastatin 40 mg tablet (Lipitor) 40 mg PO DAILY 90 days #90 tabs 06/09/22 carvedilol 25 mg tablet 25 mg PO BID High blood pressure 06/09/22 90 days #180 tabs hydrochlorothiazide 25 mg tablet 25 mg PO DAILY High blood pressure 06/09/22 90 days #90 tabs levocetirizine 5 mg tablet 5 mg PO DAILY 90 days #90 tabs 06/09/22 montelukast 10 mg tablet 10 mg PO DAILY Breathing problems 06/09/22 90 days #90 tabs omeprazole 40 mg capsule,delayed 40 mg PO DAILY GERD 90 days #90 06/09/22 release caps polyethylene glycol 3350 17 17 g PO DAILY 90 days #1,530 grams 06/09/22 gram/dose oral powder (Miralax) imipramine HCl 25 mg tablet 25 mg PO HS 90 days #90 tabs 06/10/22 warfarin 2 mg tablet 2 mg PO DAILY 90 days #90 tabs 06/10/22 Allergies Allergy/AdvReac Type Severity Reaction Status Date / Time Latex, Natural Rubber AdvReac Unknown Verified 05/10/22 09:05 [facility] Social History Smoking Status: Smoker, status unknown alcohol intake: current substance use type: denies use current occupational status: employed Travel in the last 8 weeks: None household members: none housing: house current occupational exposures/hazards: No caffeine: Yes ROS Obtained: Yes unobtainable due to mental status Physical Exam General General appearance: obtunded Head Head exam: normocephalic Expanded Eye Exam Comment: dilated rt pupil - ENT ENT exam: Present mucous membranes dry Neck Neck exam: Present trachea midline and other (c collar
[2022-06-20 02:25] LABS: INR 2.03 (0.9-1.1); Prothrombin Time 21.1 seconds (10.1-12.5)
[2022-06-20 02:26] LABS: Alanine Aminotransferase 42 U/L (12-78); Albumin Level 3.7 g/dl (3.5-5.0); Albumin/Globulin Ratio 1.3 (1.1-1.8); Alkaline Phosphatase 87 U/L (38-126); Aspartate Amino Transferase 50 U/L (14-36); Bilirubin,Total 0.8 mg/dl (0.2-1.3); Blood Urea Nitrogen 16 mg/dl (7-17); Calcium 8.7 mg/dl (8.4-10.2); Carbon Dioxide 20 mmol/L (22.0-30.0); Chloride 105 mmol/L (98-107); Creatinine Clearance Estimated 94 mL/min (50-200); Estimated Glomerular Filt Rate 72 ml/min (>60); GFR (African American) 87 ML/MIN (>60); Globulin 2.9 g/dL (1.3-3.2); Glucose 164 mg/dl (74-100); Potassium 3.4 mmoL/L (3.5-5.1); Total Protein,Serum 6.6 g/dl (6.3-8.2)
[2022-06-20 02:27] LABS: Ethyl Alcohol 139 mg/dl (0-10)
[2022-06-20 02:29] LABS: Creatine Kinase 122 U/L (30-135)
[2022-06-20 02:31] LABS: Anion Gap 14.4 mEq/L (5-15); Sodium 136 mmol/L (136-145)
--- NOTE | 2022-06-20 02:31 | PC.NURSE ---
Pt placed on 2LNC and HOB elevated to 45 degrees
[2022-06-20 02:35] LABS: Microscopic, Urine URINE MICROSCOPIC (MICROSCOPIC)
[2022-06-20 02:40] LABS: Appearance,Urine CLEAR (Clear); Bilirubin,Urine Negative (Negative); Blood, Urine 1+ (Negative); Color,Urine YELLOW (Yellow); Glucose,Urine (UA) Negative (Negative); Ketones,Urine Negative (Negative); Leukocyte Esterase,Urine Negative (Negative); Nitrate,Urine Negative (Negative); Protein,Urine Negative (Negative); Urobilinogen,Urine 0.2 EU/dl (0.2)
[2022-06-20 02:42] LABS: WBC,Urine Occasional #/hpf (0-3)
[2022-06-20 02:43] LABS: Troponin I < 0.01 ng/ml (0.00-0.034)
--- NOTE | 2022-06-20 02:46 | XR_ITS ---
PROCEDURE INFORMATION: Exam: XR Chest Exam date and time: 06/20/2022 3:03 AM Age: 66 years old Clinical indication: Device placement; Ett placement (vent status); Additional info: Post intubation TECHNIQUE: Imaging protocol: Radiologic exam of the chest. Views: 1 view. COMPARISON: CR XR CHEST PORTABLE 06/20/2022 2:28 AM FINDINGS: Tubes, catheters and devices: Interval placement of endotracheal tube with tip extending 12 mm into the right mainstem bronchus. Lungs: Increased atelectasis in the left lung base. Pleural spaces: No pleural effusion. No pneumothorax. Heart/Mediastinum: Cardiomediastinal silhouette is unchanged. Bones/joints: No acute osseous abnormality. IMPRESSION: 1. Interval placement of endotracheal tube with tip extending 12 mm into the right mainstem bronchus. 2. Increased atelectasis in the left lung base. 3. No other significant interval change from prior chest radiograph.
[2022-06-20 02:53] LABS: Barbiturates Screen,Urine Negative ng/ml (<200)
[2022-06-20 02:54] LABS: Benzodiazepines Screen,Urine Negative ng/ml (<200)
[2022-06-20 02:55] LABS: Amphetamine/Metha Screen,Urine Negative ng/ml (<1000); Cannabinoid Screen,Urine Negative ng/ml (<50)
[2022-06-20 02:56] LABS: Cocaine Screen,Urine Negative ng/ml (<300); Methadone Screen,Urine Negative ng/ml (<300)
[2022-06-20 02:57] LABS: Opiate Screen,Urine Negative ng/ml (<300)
[2022-06-20 02:58] LABS: Phencyclidine Screen,Urine Negative ng/ml (<25)
--- NOTE | 2022-06-20 03:06 | PC.NURSE ---
0240 Pt moved to room 2 to prepare for intubation. 0250- Hal orders 10mg etomidate IV and 4mg Versed IV once now. 0251- 10mg Vitamin K SQ given per 0256- MD unable to visualize vocal cords. Orders for 100mg of Succinylcholine IV once now. 0301- Pt intubated with assistance from EMS. Positive color change and bilateral lung sounds ausculatated. Portable chest xray taken and MD verbalized to move tube back 1in. Tube secured at 22cm at the lip. 0312- Pt leaving via [place] to at this time.
[2022-06-20 03:52] VITALS: BP 215/118; PULSE 79; RESP 16; TEMP 36.5; O2SAT 98
== END 2022-06-20 03:12 | disposition critical access hospital (66) ==
PROVIDERS: Emergency Provider Emergency Medicine; PCP Family Medicine
DX: S06.5X1A Traumatic subdural hemorrhage with loss of consciousness of 30 minutes or less, initial encounter (principal); W10.9XXA Fall (on) (from) unspecified stairs and steps, initial encounter; Y92.009 Unspecified place in unspecified non-institutional (private) residence as the place of occurrence of the external cause
CPT/HCPCS: 31500; 51702; 70450; 71045; 72125; 72170; 80053; 80305; 81001; 82550; 84484; 85025; 85610; 93005; 96374; 99291; J2405